=== PATIENT | female | born 1955 | race Caucasian/White ===

== ENCOUNTER 2019-04-24 11:01 | Emergency (ER) | payer BC ==
[2019-04-24 11:12] VITALS: BP 145/75
--- NOTE | 2019-04-24 12:23 | UC ---
Lower Extremity/Ankle HPI - HPI Summary HPI Summary: patient accidently kicked stool with R foot yesterday and injured 4th toe. iced and elevated foot but still painful today and black and blue - History of Current Complaint Chief Complaint: UCLowerExtremity Stated Complaint: RIGHT TOE INJURY Time Seen by Provider: 04/24/19 11:29 Hx Obtained From: Patient ?: No Onset/Duration: Sudden Onset Severity Initially: Severe Severity Currently: Moderate Pain Intensity: 5 Aggravating Factor(s): Standing, Ambulation Alleviating Factor(s): Elevation, Ice Able to Bear Weight: Yes - Allergies/Home Medications Allergies/Adverse Reactions: Allergies Allergy/AdvReac Type Severity Reaction Status Date / Time Sulfa (Sulfonamide Allergy Unknown Verified 04/24/19 11:12 Antibiotics) Reaction Details Home Medications: Home Medications Biotin 1 mg PO 04/24/19 [History] Cholecalciferol (Vitamin D3) [Vitamin D3] 1,000 unit PO 04/24/19 [History] Vitamin B Complex TAB* [B Complex-50*] 1 tab PO DAILY 04/24/19 [History Confirmed 04/24/19] PMH/Surg Hx/FS Hx/Imm Hx Previously Healthy: Yes - Surgical History Surgical History: Yes Surgery Procedure, Year, and Place: LEFT TOTAL HIP REPLACEMENT WITH REVISION, C- SECTION 1992 - Family History Known Family History: Positive: Non-Contributory - Social History Occupation: Employed Part-time Lives: With Family Alcohol Use: Weekly Substance Use Type: None Smoking Status (MU): Never Smoked Tobacco Review of Systems All Other Systems Reviewed And Are Negative: Yes Constitutional: Positive: Negative Respiratory: Positive: Negative Cardiovascular: Positive: Negative Musculoskeletal: Positive: Other: - R 4th toe pain Psychological: Positive: Negative Is Patient Immunocompromised?: No Physical Exam Triage Information Reviewed: Yes Appearance: Well-Appearing, No Pain Distress Vital Signs: Initial Vital Signs Temp 98.5 F 04/24/19 11:07 Pulse 55 04/24/19 11:07 Resp 18 04/24/19 11:07 BP 145/75 04/24/19 11:07 Pulse Ox 98 04/24/19 11:07 Vital Signs Reviewed: Yes Neck exam: Normal Respiratory Exam: Normal Cardiovascular Exam: Normal Musculoskeletal: Positive: Other: - R 4th toe with ecchymosis, swelling, pain, no gross defromity Neurological Exam: Normal Psychological Exam: Normal Skin Exam: Normal Diagnostics - Radiology No standard instances Radiology Interpretation Completed By: Radiologist - MINIMALLY DISPLACED FRACTURE INVOLVING THE RIGHT FOURTH TOE PROXIMAL PHALANX. Lower Extremity Course/Dx - Differential Dx/Diagnosis Differential Diagnosis/HQI/PQRI: Contusion, Fracture (Closed) Provider Diagnosis: Fractured toe Discharge - Sign-Out/Discharge Documenting (check all that apply): Patient Departure All imaging exams completed and their final reports reviewed: Yes - MINIMALLY DISPLACED FRACTURE INVOLVING THE RIGHT FOURTH TOE PROXIMAL PHALANX. - Discharge Plan Condition: Good Disposition: HOME Patient Education Materials: Toe Fracture (ED) Referrals: Austin Guido MD [Primary Care Provider] - Ailyn Faria MD [Medical Doctor] - 3 Days (if not improving ) Additional Instructions: ice and elevate toe keep toe eula taped when walking and use post op shoe for 4 weeks ibuprofen 600mg very 6 hours as needed for pain - Billing Disposition and Condition Condition: GOOD Disposition: Home
== END 2019-04-24 12:49 | disposition home or self-care (01) ==
LOC: UCEAST 11:01
DX: S92.511A Displaced fracture of proximal phalanx of right lesser toe(s), initial encounter for closed fracture (principal); W22.8XXA Striking against or struck by other objects, initial encounter; Y92.9 Unspecified place or not applicable; Z88.2 Allergy status to sulfonamides
CPT/HCPCS: 99212; G0463

== ENCOUNTER 2019-04-29 23:51 | Emergency (ER) | payer BC, OTHER ==
--- NOTE | 2019-04-30 00:23 | ED ---
- HPI Summary HPI Summary: 63 year old female presents with needlestick tonight. She gave patient injection of heparin. She states that placed needle on the counter. She states she went to the grab the needle and the cab does no cover the entire needle so she ended up poking her left thumb. She immediately cleaned area. No active bleeding noted. tetanus up-to-date. Has no medical conditions. source patient [id number]. - History of Current Complaint Chief Complaint: EDExposureBodyFluid Stated Complaint: NEEDLE STICK PER PT Time Seen by Provider: 04/30/19 00:00 PMH/Surg Hx/FS Hx/Imm Hx Endocrine/Hematology History: Denies: Hx Diabetes Cardiovascular History: Denies: Hx Hypertension, Hx Pacemaker/ICD GI History: Reports: Hx Irritable Bowel Musculoskeletal History: Reports: Hx Back Problems, Hx Osteoporosis Sensory History: Denies: Hx Hearing Aid Psychiatric History: Denies: Hx Panic Disorder - Cancer History Hx Chemotherapy: No Hx Radiation Therapy: No - Surgical History Surgery Procedure, Year, and Place: LEFT TOTAL HIP REPLACEMENT WITH REVISION, C- SECTION 1992 Infectious Disease History: No Infectious Disease History: Denies: Hx Clostridium Difficile, Hx Hepatitis, Hx Human Immunodeficiency Virus (HIV), Hx Shingles, Hx Tuberculosis, Traveled Outside the [place] in Last 30 Days - Family History Known Family History: Positive: Non-Contributory - Social History Alcohol Use: Weekly Substance Use Type: Reports: None Smoking Status (MU): Never Smoked Tobacco Review of Systems Negative: Fever Negative: Chest Pain Negative: Shortness Of Breath Positive: Other - left thumb needlestick All Other Systems Reviewed And Are Negative: Yes Physical Exam Triage Information Reviewed: Yes Vital Signs On Initial Exam: Initial Vitals Temp Pulse Resp BP Pulse Ox 97.2 F 77 16 159/84 97 04/29/19 23:52 04/29/19 23:52 04/29/19 23:52 04/29/19 23:52 04/29/19 23:52 Vital Signs Reviewed: Yes Appearance: Positive: Well-Appearing Skin: Positive: Warm, Dry, Other - needle stick to left thumb Head/Face: Positive: Normal Head/Face Inspection Eyes: Positive: Normal, Conjunctiva Clear ENT: Positive: Pharynx normal Respiratory/Lung Sounds: Positive: Clear to Auscultation, Breath Sounds Present Cardiovascular: Positive: Normal, RRR Musculoskeletal: Positive: Normal Neurological: Positive: Normal Psychiatric: Positive: Normal Diagnostics - Vital Signs Vital Signs Temp Pulse Resp BP Pulse Ox 04/29/19 23:52 97.2 F 77 16 159/84 97 - Laboratory Result Diagrams: 04/30/19 00:44 04/30/19 00:44 Lab Statement: Any lab studies that have been ordered have been reviewed, and results considered in the medical decision making process. Needlestick Course/Dx - Course Course Of Treatment: 63 year old female presents with needlestick tonight. She gave patient injection of heparin. She states that placed needle on the counter. She states she went to the grab the needle and the cab does no cover the entire needle so she ended up poking her left thumb. She immediately cleaned area. No active bleeding noted. tetanus up-to-date. Has no medical conditions. source patient [id number]. On exam has needlestick to left thumb. source patient neg for hep c and hiv. no PEP needed. discussed results with patient. patient understand and agrees with plan. - Diagnoses Provider Diagnoses: Needlestick injury accident Discharge - Sign-Out/Discharge Documenting (check all that apply): Patient Departure Patient Received Moderate/Deep Sedation with Procedure: No - Discharge Plan Condition: Good Disposition: HOME Referrals: Austin Guido MD [Primary Care Provider] - Additional Instructions: follow up with employee health as needed Return to ED if develop any new or worsening symptoms - Billing Disposition and Condition Condition: GOOD Disposition: Home
[2019-04-30 00:53] LABS: ABS Eosinophils 0.1 10^3/ul (0-0.6); ABS Lymphocytes 1.8 10^3/ul (1.0-4.8); ABS Monocytes 0.5 10^3/ul (0-0.8); ABS Neutrophils 3.3 10^3/ul (1.5-7.7); Eosinophil % 1.7 %; Hematocrit 39 % (35-47); Lymphocyte % 30.5 %; Mean Corpuscular HGB Conc 34 g/dL (31-36); Mean Corpuscular Hemoglobin 31 pg (27-31); Mean Corpuscular Volume 93 fL (80-97); Mean Platelet Volume 9.6 fL (7.4-10.4); Platelet Count 191 10^3/uL (150-450); Red Blood Count 4.15 10^6 /uL (3.70-4.87); Red Cell Distribution Width 13 % (10-15); White Blood Count 5.7 10^3/uL (3.5-10.8)
[2019-04-30 01:09] LABS: Albumin 4.3 g/dL (3.2-5.2); Albumin/Globulin Ratio 1.6 (1-3); BUN/Creatinine Ratio 22.1 (8-20); Calcium 10.1 mg/dL (8.6-10.3); EGFR African American 72.4 (>60); EGFR Non-African American 59.8 (>60); Globulin 2.7 g/dL (2-4); Total Bilirubin 0.4 mg/dL (0.2-1.0)
[2019-04-30 01:44] LABS: HIV 4th Generation Negative (Negative)
[2019-04-30 01:59] LABS: Hepatitis B Surface Antigen Negative (Negative)
[2019-04-30 02:16] LABS: Hepatitis C Antibody Negative (Negative)
[2019-04-30 02:32] VITALS: BP 0/0
[2019-05-03 12:12] LABS: Hepatitis B Surface Ab Indeterminate (Immune)
== END 2019-04-30 02:31 | disposition home or self-care (01) ==
LOC: ED 23:51
DX: S61.032A Puncture wound without foreign body of left thumb without damage to nail, initial encounter (principal); W46.1XXA Contact with contaminated hypodermic needle, initial encounter; Y93.F9 Activity, other caregiving; Y92.239 Unspecified place in hospital as the place of occurrence of the external cause; Y99.0 Civilian activity done for income or pay; Z96.642 Presence of left artificial hip joint
CPT/HCPCS: 36415; 80053; 85025; 86706; 86803; 87340; 87389; 99282

== ENCOUNTER 2019-12-17 09:57 | Emergency (ER) | payer BC, OTHER ==
--- NOTE | 2019-12-17 10:26 | ED ---
- HPI Summary HPI Summary: This patient is a 64-year-old male presenting to the ED with a needlestick to the left index finger. Patient states she was giving a heparin injection when she accidentally stuck the tip of her left index. She did wash the area immediately following. 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 Unknown source patient, however the source patient is at [facility] currently and per management, they will request testing of this individual. Patient denies pain or sxs currently. - History of Current Complaint Chief Complaint: EDExposureBodyFluid Stated Complaint: NEEDLE STICK Time Seen by Provider: 12/17/19 10:02 Date of Incident: 12/17/19 Time of Incident: 10:00 Job Performing at Time of Incident: RN Mechanism of Injury: needlstick to the L index finger Bleeding at Site: No Body Fluid Exposure: Blood Treatment TRAVELING PASSENGER AGENT: Cleaned Wound - Source Information HIV: Unknown Hepatitis: Unknown - Risk Factors Needlestick Risk Factor: Low Risk: Solid Needle, Low Risk: Short Duration - Other Discussed Post-Exposure prophylaxis (PEP) for HIV: Declined Discussed PEP for Hepatitis-B: Declined Serologic Testing (HIV/HBV) Declined by Patient: No (Must be retained for 90 days, if drawn) PMH/Surg Hx/FS Hx/Imm Hx Previously Healthy: Yes Endocrine/Hematology History: Denies: Hx Diabetes Cardiovascular History: Denies: Hx Hypertension, Hx Pacemaker/ICD GI History: Reports: Hx Irritable Bowel Musculoskeletal History: Reports: Hx Back Problems, Hx Osteoporosis Sensory History: Denies: Hx Hearing Aid Psychiatric History: Denies: Hx Panic Disorder - Cancer History Hx Chemotherapy: No Hx Radiation Therapy: No - Surgical History Surgery Procedure, Year, and Place: LEFT TOTAL HIP REPLACEMENT WITH REVISION, C- SECTION 1992 Infectious Disease History: No Infectious Disease History: Denies: Hx Clostridium Difficile, Hx Hepatitis, Hx Human Immunodeficiency Virus (HIV), Hx Shingles, Hx Tuberculosis, Traveled Outside the [place] in Last 30 Days - Family History Known Family History: Positive: Non-Contributory - Social History Occupation: Employed Full-time Lives: With Family Alcohol Use: Weekly Hx Substance Use: No Substance Use Type: Reports: None Smoking Status (MU): Never Smoked Tobacco Review of Systems Negative: Fever, Chills, Fatigue, Skin Diaphoresis Negative: Palpitations, Chest Pain Negative: Shortness Of Breath, Cough Genitourinary: Negative Positive: no symptoms reported, see HPI Negative: Arthralgia, Myalgia Positive: Other - small needle stick to the L index finger without bleeding Neurological/Mental Status: Negative All Other Systems Reviewed And Are Negative: Yes Physical Exam Triage Information Reviewed: Yes Vital Signs On Initial Exam: Initial Vitals Temp Pulse Resp BP Pulse Ox 98.0 F 97 16 141/94 100 12/17/19 09:59 12/17/19 09:59 12/17/19 09:59 12/17/19 09:59 12/17/19 09:59 Vital Signs Reviewed: Yes Appearance: Positive: Well-Appearing, Well-Nourished Skin: Positive: Warm, Skin Color Reflects Adequate Perfusion, Other - small needle stick to the L index finger without bleeding Head/Face: Positive: Normal Head/Face Inspection Eyes: Positive: EOMI, NICOLE, Conjunctiva Clear Neck: Positive: Supple, No Lymphadenopathy Respiratory/Lung Sounds: Positive: Clear to Auscultation, Breath Sounds Present Cardiovascular: Positive: RRR, Pulses are Symmetrical in both Upper and Lower Extremities Musculoskeletal: Positive: Strength/ROM Intact Neurological: Positive: Speech Normal Psychiatric: Positive: Affect/Mood Appropriate Procedures - Sedation Patient Received Moderate/Deep Sedation with Procedure: No Diagnostics - Vital Signs Vital Signs Temp Pulse Resp BP Pulse Ox 12/17/19 09:59 98.0 F 97 16 141/94 100 - Laboratory Lab Statement: Any lab studies that have been ordered have been reviewed, and results considered in the medical decision making process. Needlestick Course/Dx - Course Course Of Treatment: Will await source patient testing. Discussed PREP with patient. Suggested deferment at this time until source patient could be tested. This was small needlestick and risk of transferrance very low. - Diagnoses Provider Diagnoses: Needlestick injury accident Discharge ED - Sign-Out/Discharge Documenting (check all that apply): Patient Departure - Discharge Plan Condition: Stable Disposition: HOME Referrals: Austin Guido MD [Primary Care Provider] - Additional Instructions: You will receive any positive or negative results from your immediate director - Billing Disposition and Condition Condition: STABLE Disposition: Home
[2019-12-17 10:41] VITALS: BP 133/88
[2019-12-17 11:49] LABS: Hepatitis B Surface Antigen Nonreactive (Nonreactive)
[2019-12-17 12:06] LABS: Hepatitis C Antibody Negative (Negative)
[2019-12-17 15:10] LABS: Hepatitis B Surface Ab Indeterminate (Immune)
== END 2019-12-17 10:34 | disposition home or self-care (01) ==
LOC: ED 09:57
DX: S61.231A Puncture wound without foreign body of left index finger without damage to nail, initial encounter (principal); W46.1XXA Contact with contaminated hypodermic needle, initial encounter; Y93.F9 Activity, other caregiving; Y92.230 Patient room in hospital as the place of occurrence of the external cause; Y99.0 Civilian activity done for income or pay; Z96.642 Presence of left artificial hip joint
CPT/HCPCS: 36415; 86706; 86803; 87340; 87536; 99282

== ENCOUNTER 2023-06-01 13:26 | Observation (INO) ==
[2023-06-01 13:49] LABS: ABS Basophils 0.1 10^3/uL (0.0-0.1); ABS Eosinophils 0.1 10^3/uL (0.0-0.5); ABS Lymphocytes 0.9 10^3/uL (1.0-4.8); ABS Monocytes 0.7 10^3/uL (0.0-0.9); ABS Neutrophils 6.3 10^3/uL (1.5-7.6); ABS Nucleated RBC 0.01 10^3/ul; Eosinophil % 1.1 %; Hemoglobin 13.9 g/dL (11.5-14.3); Mean Corpuscular Volume 97.2 fL (80-97); Mean Platelet Volume 8.6 fL (7.5-11.2); Nucleated Red Blood Cells % 0.1 /100 WBC (0.0-0.4); Platelet Count 220 10^3/uL (150-450); Red Blood Count 4.22 10^6/uL (3.63-4.92); Red Cell Distribution Width 14.4 % (12-17)
[2023-06-01 13:57] LABS: INR 0.98 (0.83-1.13)
[2023-06-01 14:06] LABS: Albumin 4.2 g/dL (3.2-5.2); Albumin/Globulin Ratio 2.1 (1-3); Calcium 9.3 mg/dL (8.6-10.3); Creatinine, Serum 0.85 mg/dL (0.51-0.95); Potassium 4.1 mmol/L (3.5-5.0); Total Bilirubin 0.5 mg/dL (0.2-1.0); Total Protein 6.2 g/dL (6.4-8.9)
[2023-06-01 15:16] LABS: High Sensitivity Troponin 1 Hr 3 pg/mL (<15)
[2023-06-01] MEDS ORDERED: Al Hydrox/Mg Hydrox/Simet LIQ 30 ML UDC PO PRN (17:37)
[2023-06-01] MEDS ORDERED: Polyethylene Glycol 3350 17 GM PACKET PO PRN (17:37)
[2023-06-02 10:41] VITALS: BP 120/70
[2023-06-02] MEDS ORDERED: Enoxaparin 40 MG/0.4 ML SYR SUBCUT SCH (18:00)
== END 2023-06-02 16:51 | disposition home or self-care (01) ==
LOC: ED 13:26 → EDHOLD 13:26 → SUATTDRO 17:37 → MEDTELE 19:24
PROVIDERS: ADMIT Internal Medicine; ATTEND Internal Medicine